=== PATIENT | female | born 1975 | race Two or more races ===

== ENCOUNTER 2023-05-14 21:15 | Emergency (ER) | payer OTHER ==
[2023-05-14 21:21] VITALS: BMI 25.9
[2023-05-14] MEDS ORDERED: ACETAMINOPHEN 500 MG TABLET (FP) PO ONE (22:50)
[2023-05-14] MEDS ORDERED: predniSONE 20 MG TABLET (UD) PO ONE (22:50)
[2023-05-14] MEDS ORDERED: guaiFENesin/D-METHORPHAN HB 10 ML UNIT-DOSE CUPS PO ONE (22:50)
[2023-05-14] MEDS ORDERED: ACETAMINOPHEN 500 MG TABLET (FP) ONE (22:53)
[2023-05-14] MEDS ORDERED: predniSONE 20 MG TABLET (UD) ONE (22:53)
[2023-05-14] MEDS ORDERED: guaiFENesin/D-METHORPHAN HB 10 ML UNIT-DOSE CUPS ONE (22:53)
[2023-05-14 23:45] LABS: THROAT:GRP A STREP NOT DETECTED (NOTDETECTED)
[2023-05-15] MEDS ORDERED: KETOROLAC TROMETHAMINE 30 MG/1 ML VIAL ONE (00:10)
[2023-05-15] MEDS ORDERED: KETOROLAC TROMETHAMINE 30 MG/1 ML VIAL IM ONE (00:21)
[2023-05-15 01:04] VITALS: BP 125/90; PULSE 99; RESP 16; TEMP 99
== END 2023-05-15 01:04 | disposition home or self-care (01) ==
LOC: JERFT 21:15
PROC: 3E023NZ Introduction of Analgesics, Hypnotics, Sedatives into Muscle, Percutaneous Approach (ICD-10-PCS; principal; 2023-05-15)
DX: J40 Bronchitis, not specified as acute or chronic (principal); J10.1 Influenza due to other identified influenza virus with other respiratory manifestations; R50.9 Fever, unspecified; M79.10 Myalgia, unspecified site; R51.9 Headache, unspecified; R05.9 Cough, unspecified; Z20.822 Contact with and (suspected) exposure to COVID-19
CPT/HCPCS: 0241U-QW; 71046-TC-FY; 87651; 96372; 99284-25